=== PATIENT | male | born 1980 | race Caucasian/White ===

== ENCOUNTER 2016-08-13 01:44 | Emergency (ER) | payer BC | END 2016-08-13 05:36 | disposition home or self-care (01) | LOC: ER1 01:44 | DX: J20.9 Acute bronchitis, unspecified (principal) | CPT/HCPCS: 71020; 87081; 87880; 99283 ==

== ENCOUNTER 2021-02-28 12:46 | Emergency (ER) | payer BC | END 2021-02-28 15:28 | disposition home or self-care (01) | LOC: ER1 12:46 | DX: J06.9 Acute upper respiratory infection, unspecified (principal); Z20.822 Contact with and (suspected) exposure to COVID-19 | CPT/HCPCS: 71045; 99283; U0002 ==

== ENCOUNTER → 2021-06-13 | Outpatient (CLI) | payer BC | LOC: HEART 5 10:13 | DX: J45.909 Unspecified asthma, uncomplicated (principal) | CPT/HCPCS: 94060; 94729 ==

== ENCOUNTER → 2021-12-03 | Outpatient (CLI) | payer BC | LOC: HEART 5 12:24 | DX: J45.50 Severe persistent asthma, uncomplicated (principal) | CPT/HCPCS: 94010; 95012 ==